=== PATIENT | female | born 1955 | race American Indian/Alaskan Native ===

== ENCOUNTER 2017-04-03 20:29 | Emergency (ER) | payer BC, OTHER ==
[2017-04-03 23:32] LABS: Basophils % (Auto) 0.4 % (0.0-1.8); Eosinophils # (Auto) 0.1 K/mm3 (0.0-0.4); Eosinophils % (Auto) 1.7 % (0.0-4.3); Hematocrit 27.4 % (30.3-42.9); Hemoglobin 9.1 gm/dl (10.1-14.3); Lymphocytes # (Auto) 1.1 K/mm3 (1.2-5.4); Lymphocytes % (Auto) 16.1 % (13.4-35.0); Mean Corpuscular HGB Conc 33 % (30-34); Mean Corpuscular Hemoglobin 27 pg (28-32); Mean Corpuscular Volume 82 fl (79-97); Monocytes # (Auto) 0.7 K/mm3 (0.0-0.8); Monocytes % (Auto) 10.1 % (0.0-7.3); Platelet Count 295 K/mm3 (140-440); Red Blood Count 3.33 M/mm3 (3.65-5.03); Red Cell Distribution Width 15.1 % (13.2-15.2)
[2017-04-03 23:46] LABS: Alanine Aminotransferase 10 units/L (7-56); Albumin 3.9 g/dL (3.9-5); BUN/Creatinine Ratio 31; Blood Urea Nitrogen 25 mg/dL (7-17); Calcium 8.9 mg/dL (8.4-10.2); Hemolysis Index 0
--- NOTE | 2017-04-04 00:04 | XRay Report ---
FINAL REPORT PROCEDURE: XR FEMUR 2+V RT TECHNIQUE: RIGHT femur radiographs, AP and lateral views. HISTORY: leg pain COMPARISON: No prior studies are available for comparison. FINDINGS: Fracture (s) and/or Dislocation(s): None . Joint space(s): Normal . Soft tissues: Normal . Bone mineralization: Normal . Foreign bodies: None . IMPRESSION: Normal Examination
--- NOTE | 2017-04-04 00:04 | XRay Report ---
FINAL REPORT PROCEDURE: XR TIBIA FIBULA 2V RT TECHNIQUE: RIGHT tibia and fibula radiographs, AP and lateral views. CPT 69585 HISTORY: leg pain COMPARISON: No prior studies are available for comparison. FINDINGS: Fracture (s) and/or Dislocation(s): None . Joint space(s): Normal . Soft tissues: Normal . Bone mineralization: Normal . Foreign bodies: None . IMPRESSION: Normal Examination.
--- NOTE | 2017-04-04 07:10 | Cat Scan Report ---
FINAL REPORT EXAM: CT ANGIO CHEST HISTORY: elevated dimer TECHNIQUE: CT imaging obtained through the chest in pulmonary angiographic phase following intravenous administration of contrast. Transaxial, Coronal and sagittal reformats with maximal intensity projections are provided. PRIORS: None. FINDINGS: Normal caliber main pulmonary artery. No central or segmental pulmonary embolism. No pericardial effusion. Thoracic aorta is normal in course and caliber. No periaortic fluid or stranding. No pneumothorax, effusion or focal airspace disease. The central airways are patent. No bronchiectasis. Imaged portion of the upper abdomen is unremarkable. The superficial soft tissues are unremarkable. No acute bony abnormality or worrisome osseous lesions identified. IMPRESSION: No central or segmental pulmonary embolism or other acute finding.
[2017-04-04] MEDS ORDERED: K-DUR PO ONE (11:32)
[2017-04-04] MEDS ORDERED: TORADOL IM ONE (11:32)
--- NOTE | 2017-04-04 11:38 | Emergency Department Report ---
HPI - General Chief Complaint: Extremity Problem,Nontraumatic Time Seen by Provider: 04/04/17 11:23 - HPI HPI: Room 10 The patient is a 61-year-old female presenting with a chief complaint of right lower leg pain and swelling. Patient states for the past and a she's had pain and swelling of the right lower extremity. Patient denies any history of trauma. The patient gives her pain is scored 10/10. The patient denies chest pain or shortness of breath Location: Right lower extremity Duration: 10 days Quality: Pain Severity: 10/10 Modifying factors: [see above] Context: [see above] Mode of transportation: The patient drove herself to the emergency department ED Past Medical Hx - Past Medical History Hx Hypertension: Yes Hx Diabetes: Yes Hx GERD: Yes Hx Arthritis: Yes (osteoarthritis) - Surgical History Past Surgical History?: No Additional Surgical History: Vocal cord polyp removal - Family History Family history: no significant - Social History Smoking Status: Never Smoker Substance Use Type: None - Medications Home Medications: Home Medications Medication Instructions Recorded Confirmed Last Taken Type HCTZ 1 cap PO DAILY 02/06/15 Unknown History metFORMIN 500 mg PO BID 02/06/15 Unknown History Ibuprofen [Motrin 800 MG tab] 800 mg PO Q8HR PRN #20 tablet 04/04/17 Unknown Rx oxyCODONE /ACETAMINOPHEN [Percocet 1 - 2 tab PO Q6HR PRN #14 tablet 04/04/17 Unknown Rx 5/325] ED Review of Systems ROS: Stated complaint: RT LEG SWELLING Other details as noted in HPI Musculoskeletal: arthralgia, myalgia Physical Exam - Physical Exam Vital Signs: Vital Signs 04/03/17 04/04/17 04/04/17 22:49 06:19 07:32 Temperature 98.2 F Pulse Rate 102 H Respiratory 16 11 L Rate Blood Pressure 172/79 148/76 Blood Pressure [Right] O2 Sat by Pulse 97 98 98 Oximetry 04/04/17 04/04/17 04/04/17 07:35 07:45 08:00 Temperature 98.7 F Pulse Rate 96 H Respiratory 18 Rate Blood Pressure 157/80 145/76 Blood Pressure 148/76 [Right] O2 Sat by Pulse 98 97 96 Oximetry 04/04/17 04/04/17 04/04/17 08:40 08:45 09:00 Temperature Pulse Rate Respiratory Rate Blood Pressure 145/76 149/85 153/78 Blood Pressure [Right] O2 Sat by Pulse 86 99 Oximetry 04/04/17 04/04/17 04/04/17 09:15 09:30 09:45 Temperature Pulse Rate Respiratory Rate Blood Pressure 156/77 161/79 165/81 Blood Pressure [Right] O2 Sat by Pulse 98 96 99 Oximetry 04/04/17 04/04/17 10:00 10:15 Temperature Pulse Rate Respiratory Rate Blood Pressure 131/77 125/92 Blood Pressure [Right] O2 Sat by Pulse 97 97 Oximetry Physical Exam: GENERAL: The patient is well-developed well-nourished female sitting on stretcher not appearing to be in acute distress. [] HEENT: Normocephalic. Atraumatic. Extraocular motions are intact. Patient has moist mucous membranes. NECK: Supple. Trachea midline CHEST/LUNGS: Clear to auscultation. There is no respiratory distress noted. HEART/CARDIOVASCULAR: Regular. There is no tachycardia. There is no gallop rub or murmur. ABDOMEN: Abdomen is soft, nontender. Patient has normal bowel sounds. There is no abdominal distention. SKIN: There is no rash. There is mild edema of the right lower extremity. There is no diaphoresis. NEURO: The patient is awake, alert, and oriented. The patient is cooperative. The patient has normal speech MUSCULOSKELETAL: There is slightly increased warmth of the right knee. There is no evidence of acute injury. ED Course Vital Signs 04/03/17 04/04/17 04/04/17 22:49 06:19 07:32 Temperature 98.2 F Pulse Rate 102 H Respiratory 16 11 L Rate Blood Pressure 172/79 148/76 Blood Pressure [Right] O2 Sat by Pulse 97 98 98 Oximetry 04/04/17 04/04/17 04/04/17 07:35 07:45 08:00 Temperature 98.7 F Pulse Rate 96 H Respiratory 18 Rate Blood Pressure 157/80 145/76 Blood Pressure 148/76 [Right] O2 Sat by Pulse 98 97 96 Oximetry 04/04/17 04/04/17 04/04/17 08:40 08:45 09:00 Temperature Pulse Rate Respiratory Rate Blood Pressure 145/76 149/85 153/78 Blood Pressure [Right] O2 Sat by Pulse 86 99 Oximetry 04/04/17 04/04/17 04/04/17 09:15 09:30 09:45 Temperature Pulse Rate Respiratory Rate Blood Pressure 156/77 161/79 165/81 Blood Pressure [Right] O2 Sat by Pulse 98 96 99 Oximetry 04/04/17 04/04/17 10:00 10:15 Temperature Pulse Rate Respiratory Rate Blood Pressure 131/77 125/92 Blood Pressure [Right] O2 Sat by Pulse 97 97 Oximetry ED Medical Decision Making - Lab Data Result diagrams: 04/03/17 23:13 04/03/17 23:13 Laboratory Tests 04/03/17 04/03/17 04/03/17 23:13 23:13 23:13 WBC 6.5 RBC 3.33 L Hgb 9.1 L Hct 27.4 L MCV 82 MCH 27 L MCHC 33 RDW 15.1 Plt Count 295 Lymph % (Auto) 16.1 Swisher % (Auto) 10.1 H Eos % (Auto) 1.7 Baso % (Auto) 0.4 Lymph # 1.1 L Swisher # 0.7 Eos # 0.1 Baso # 0.0 Seg Neutrophils % 71.7 H Seg Neutrophils # 4.7 D-Dimer 1054.81 H Sodium 141 Potassium 2.9 L* Chloride 97.5 L Carbon Dioxide 27 Anion Gap 19 BUN 25 H Creatinine 0.8 Estimated GFR > 60 BUN/Creatinine Ratio 31 Glucose 137 H Calcium 8.9 Total Bilirubin 0.30 AST 10 ALT 10 Alkaline Phosphatase 65 Total Protein 7.5 Albumin 3.9 Albumin/Globulin Ratio 1.1 - Radiology Data Radiology results: report reviewed (CT chest, right lower extremity Doppler), image reviewed (CT chest, right lower extremity Doppler) interpreted by me: Right femur x-ray-no acute fracture Right tib-fib x-ray-no acute fracture FINAL REPORT EXAM: CT ANGIO CHEST HISTORY: elevated dimer TECHNIQUE: CT imaging obtained through the chest in pulmonary angiographic phase following intravenous administration of contrast. Transaxial, Coronal and sagittal reformats with maximal intensity projections are provided. PRIORS: None. FINDINGS: Normal caliber main pulmonary artery. No central or segmental pulmonary embolism. No pericardial effusion. Thoracic aorta is normal in course and caliber. No periaortic fluid or stranding. No pneumothorax, effusion or focal airspace disease. The central airways are patent. No bronchiectasis. Imaged portion of the upper abdomen is unremarkable. The superficial soft tissues are unremarkable. No acute bony abnormality or worrisome osseous lesions identified. IMPRESSION: No central or segmental pulmonary embolism or other acute finding. Transcribed By: MB Dictated By: PATRICA SALGADO MD Electronically Authenticated By: PATRICA SALGADO MD Signed Date/Time: 04/04/17307 DD/ 7 TD/TT: 04/04/17307 ARGELIA HOLLAND Female : 1955 MedRec# [id number] 04/04/17 08:33 - Radiology Dept. Note by KARINREUBEN RomoYOVANA Acct Num: [id number] : 1955 Patient Age: 61 RLE VENOUS DUPLEX COMPLETED. VAS LAB PRELIMINARY REPORT; NO EVIDENCE OF DVT/SVT NOTED IN VESSELS/SEGMENTS EXAMINED. PHYSICIANS REPORT TO FOLLOW...(RSK) Initialized on 04/04/17 08:33 - END OF NOTE - Differential Diagnosis DVT, osteoarthritis Critical care attestation.: If time is entered above; I have spent that time in minutes in the direct care of this critically ill patient, excluding procedure time. ED Disposition Clinical Impression: Right knee pain Disposition: DC-01 TO HOME OR SELFCARE Is pt being admited?: No Does the pt Need Aspirin: No Condition: Stable Instructions: Arthralgia (ED) Additional Instructions: He should return to the hospital in 7 days to have a repeat ultrasound performed of your right lower extremity. Return to the emergency department immediately should you develop worsening symptoms, fever, inability to tolerate food or liquid or any other concerns. Prescriptions: Ibuprofen [Motrin 800 MG tab] 800 mg PO Q8HR PRN #20 tablet PRN Reason: Pain oxyCODONE /ACETAMINOPHEN [Percocet 5/325] 1 - 2 tab PO Q6HR PRN #14 tablet PRN Reason: Pain Referrals: PRIMARY CARE, [Primary Care Provider] - 3-5 Days RAZA QUINTERO MD [Staff Physician] - 3-5 Days (Dr. Quintero is an orthopedic surgeon. Please follow up with him or your own orthopedic surgeon for further evaluation) Time of Disposition: 11:43
[2017-04-04 12:55] VITALS: BP 123/78
== END 2017-04-04 12:50 | disposition home or self-care (01) ==
LOC: ED 20:29
DX: M25.561 Pain in right knee (principal)
CPT/HCPCS: 29505; 36415; 71275; 73552; 73590; 80053; 85025; 85379; 93971; 96372; 99285; J1885; Q9967